=== PATIENT | female | born 1950 | race Caucasian/White ===

== ENCOUNTER 2019-12-01 21:15 | Observation (INO) ==
[2019-12-02] MEDS ORDERED: Naloxone 0.4 MG/ML INJ IVP PRN (03:15)
[2019-12-02 07:09] LABS: Basophils # 0.1 K/mcL (0.0-0.2); Eosinophils # 0.2 K/mcL (0.0-0.6); Eosinophils % 1.8 %; Hematocrit 34.7 % (35.3-44.9); Hemoglobin 10.8 g/dL (11.5-15.4); Immature Granulocytes % 0.2 % (0-4); Lymphocytes # 3.8 K/mcL (0.6-4.6); Mean Corpuscular HGB Conc 31.1 g/dL (31.6-35.5); Mean Corpuscular Hemoglobin 28.6 pg (28.0-33.3); Mean Platelet Volume 9.9 fL (9.4-12.4); Monocytes % 10.3 %; Neutrophils # 4.3 K/mcL (1.6-8.9); Platelet Count 298 K/mcL (140-400); Red Blood Count 3.77 M/mcL (3.82-4.97); Red Cell Distribution Width 14.6 % (11.5-14.5); Segmented Neutrophils % 45.7 %; White Blood Count 9.3 K/mcL (4.3-11.1)
[2019-12-02 07:14] LABS: Prothrombin Time 10.9 Seconds (9.4-12.1)
[2019-12-02 07:32] LABS: Alanine Aminotransferase 11 Units/L (7-52); Albumin 3.4 g/dL (3.5-5.7); Albumin/Globulin Ratio 1.6 (1.1-2.2); Alkaline Phosphatase 41 Units/L (34-104); Aspartate Amino Transferase 18 Units/L (13-39); BUN/Creatinine Ratio 15 (6-26); Bilirubin,Total 0.5 mg/dL (0.3-1.0); Blood Urea Nitrogen 12 mg/dL (8-23); Calcium 8.2 mg/dL (8.6-10.3); Carbon Dioxide 25 mEq/L (23-29); Chloride 111 mEq/L (98-107); Chol/HDL Ratio 2.1 (0-4.9); Cholesterol 127 mg/dL (< 200); Globulin 2.1 g/dL (2.4-3.5); Glucose 88 mg/dL (70-105); HDL Cholesterol 61 mg/dL (40-59); LDL Cholesterol,Calculated 48 mg/dL (0-99); Magnesium 2.1 mg/dL (1.6-2.6); Osmolality,Calculated 293 (280-300); Phosphorous 3.3 mg/dL (2.7-4.5); Potassium 3.7 mEq/L (3.5-5.1); Sodium 142 mEq/L (136-145); Total Protein 5.5 g/dL (6.4-8.9); Triglycerides 91 mg/dL (< 150); Troponin I < 0.03 ng/mL (< 0.04); eGFR For African Americans > 60 (> 60); eGFR For Non-African Americans > 60 (> 60)
[2019-12-02 08:01] LABS: Estimated Average Glucose 123 mg/dl
[2019-12-02] MEDS ORDERED: *HR* Acetaminophen w/Cod 300-30 mg 1 TAB TABLET PO PRN (08:41)
[2019-12-02] MEDS ORDERED: predniSONE 5 MG TABLET PO SCH (09:00)
[2019-12-02] MEDS ORDERED: Famotidine 20 MG TABLET PO SCH (09:00)
[2019-12-02] MEDS ORDERED: Aspirin 81 MG TAB.CHEW PO SCH (09:00)
[2019-12-02] MEDS ORDERED: Perflutren Lipid Microsphere 1.3 ML in 0.9 % Sodium Chloride 8.7 ML IVP ONE (10:24)
[2019-12-02] MEDS ORDERED: clonazePAM 1 MG TABLET PO SCH (12:00)
[2019-12-02 12:56] VITALS: BP 139/87
[2019-12-02] MEDS ORDERED: traZODone 50 MG TABLET PO SCH (21:00)
== END 2019-12-02 14:52 | disposition home or self-care (01) ==
LOC: 3BNU → SUATTDRO 12-02 00:03
PROVIDERS: ADMIT Family Medicine; ATTEND Internal Medicine